=== PATIENT | female | born 1965 | race Two or more races ===

== ENCOUNTER → 2018-01-24 10:30 | Outpatient (CLI) | payer SELFPAY ==
--- NOTE | 2018-01-23 12:40 | CER_PTH ---
PATIENT: RENNY CANALES LOC: [facility] U#:[id number] AGE/SX: 59/F ROOM: RE01/24/[address]: Dr. Kleber Frederick MD : 1965 BED: DIS: SPEC #: [id number] RECD: 01/24/18 10:30 STATUS: MICHAEL PRISCILLA #: [id number] JUANIS: 01/23/18 12:[address]: Kleber Frederick DEPT: SURGICAL PATHOLOGY RECD BY: Scott Serrato Tissues: Uterine cervix, NOS Procedures: Surgery Specimen Level IV HEADER OPERATION: Cervical polyp removal PRE-OP DIAGNOSIS: Cervical polyp TISSUE SUBMITTED: Cervical polyp MICROSCOPIC DIAGNOSIS Cervical polyp, polypectomy: Benign endocervical polyp, inflamed and focally ulcerated with associated granulation. AM:radha 01/25/18 MICROSCOPIC DESCRIPTION Slides are reviewed. GROSS DESCRIPTION Received in fixative is one container labeled with the patient's name and designated cervical polyp removal. The specimen consists of a piece of judge-pink polyp measuring 2 x 1.5 x 0.5 cm. Also present in the container are multiple fragments of hemorrhagic mucoid tissue measuring in aggregate 1.5 x 1.5 x 0.1 cm. The polyp is bisected. The entire specimen is submitted in one cassette. / SJ:radha 01/24/18 TC:1 CPT: 55474
== END ==
PROVIDERS: Referring Provider Obstetrics & Gynecology; Visit Provider Obstetrics & Gynecology
DX: N84.1 Polyp of cervix uteri (principal)
CPT/HCPCS: 88305

== ENCOUNTER → 2020-04-21 | Outpatient (CLI) | payer SELFPAY ==
[2020-04-29 20:51] LABS: HPV APTIMA, High Risk Negative (Negative); HPV Reflexed? YES, CHARGE PATIENT
== END | disposition home or self-care (01) ==
LOC: LABSPEC 04-22 09:16
PROVIDERS: Visit Provider Obstetrics & Gynecology
DX: Z12.4 Encounter for screening for malignant neoplasm of cervix (principal)
CPT/HCPCS: 87624; 88175; G0145

== ENCOUNTER → 2022-05-31 | Outpatient (CLI) | payer SELFPAY ==
--- NOTE | 2022-05-31 | POL_PTH ---
PATIENT: RENNY CANALES LOC: [facility] U#:[id number] AGE/SX: 57/F ROOM: RE05/31/[address]: Dr. Edyta Blancas, : 1965 BED: DIS: 05/31/2022 SPEC #: [id number] RECD: 05/31/22 14:19 STATUS: MICHAEL PRISCILLA #: [id number] JUANIS: 05/31/22 00:[address]: Edyta Blancas DEPT: SURGICAL PATHOLOGY RECD BY: Americo Mcnamara Tissues: Uterine cervix, NOS Procedures: Surgery Specimen Level IV HEADER OPERATION: Cervical polyp removal PRE-OP DIAGNOSIS: Cervical polyp TISSUE SUBMITTED: Cervical polyp MICROSCOPIC DIAGNOSIS Cervical polyp, biopsy: Consistent with fragments of mixed benign ecto- and endocervical polyp, blood and mucous. SJ:radha 06/02/2022 MICROSCOPIC DESCRIPTION Slides are reviewed. GROSS DESCRIPTION Received in fixative is one container labeled with the patient's name and designated cervical polyp. The specimen consists of multiple irregular and mucoid fragments of judge tissue that in aggregate measure 3.0 x 1.0 x 0.2 cm. The specimen is totally submitted in one cassette. / AM:radha 06/01/2022 TC:5 CPT: 25329
== END | disposition home or self-care (01) ==
LOC: LABSPEC 14:14
PROVIDERS: Visit Provider Student in an Organized Health Care Education/Training Program
DX: N84.1 Polyp of cervix uteri (principal)
CPT/HCPCS: 88305